=== PATIENT | male | born 1980 | race Two or more races ===

== ENCOUNTER 2022-11-14 00:43 | Emergency (ER) | payer MEDICAID, OTHER ==
[~2022-11-14] VITALS: Ht 172.7 cm; Wt 115.0 kg
[2022-11-14 01:16] LABS: Basophils # (auto) 0.1 10 ^3/uL (0-0.2); Basophils % (auto) 0.8 % (0.0-2.0); Eosinophils # (auto) 0.2 10 ^3/uL (0-0.8); Eosinophils % (auto) 1.7 % (0.0-7.0); Hematocrit 47.8 % (41.0-53.0); Hemoglobin 15.9 g/dL (13.5-17.5); Lymphocytes # (auto) 5.4 10 ^3/uL (0.4-5.4); Lymphocytes % (auto) 47.3 % (10.0-50.0); Mean Corpuscular Hemoglobin 29.9 pg (28.0-32.0); Mean Corpuscular Hgb Conc. 33.3 g/dL (32.0-36.0); Mean Corpuscular Volume 89.8 fL (80.0-100.0); Monocytes # (auto) 0.7 10 ^3/uL (0-1.3); Monocytes % (auto) 6.2 % (0.0-12.0); Nucleated Red Blood Cells % 0.1 %; Red Blood Cells 5.32 10^6/uL (4.5-5.90); Red Cell Distribution Width 13.6 % (11.8-14.3); White Blood Cell 11.4 10^3/uL (4.4-10.8)
[2022-11-14 01:29] LABS: INR 0.94 (0.9-1.15); Partial Thromboplastin Time 27.2 sec (24.6-33.4)
[2022-11-14 01:31] LABS: Albumin 3.9 g/dL (3.4-5.0); BUN/Creatinine Ratio 14.6 (10.0-20.0); Calcium 9.8 mg/dL (8.5-10.1); Magnesium 1.9 mg/dL (1.6-2.6); Potassium 4.4 mmol/L (3.5-5.1)
[2022-11-14 01:34] LABS: Bilirubin, Total 0.4 mg/dL (0.2-1.0)
[2022-11-14] MEDS ORDERED: IBUPROFEN 800 MG TAB PO ONE (02:15)
[2022-11-14] MEDS ORDERED: LORazepam 0.5 MG TAB PO ONE (02:15)
[2022-11-14] MEDS ORDERED: HYDR25CA PO (02:25)
[2022-11-14] MEDS ORDERED: IBU600T PO (02:25)
[2022-11-14 03:10] VITALS: BP 142/88
== END 2022-11-14 03:13 | disposition home or self-care (01) ==
LOC: ER 00:43
DX: R07.9 Chest pain, unspecified (principal); I10 Essential (primary) hypertension; F41.9 Anxiety disorder, unspecified
CPT/HCPCS: 36415; 71045; 80053; 83735; 83880; 84484; 85025; 85610; 85730; 93005